=== PATIENT | female | born 1960 | race Caucasian/White ===

== ENCOUNTER 2018-09-26 13:38 | Inpatient (IN) | payer OTHER ==
[~2018-09-26] VITALS: Ht 170.2 cm; Wt 76.0 kg
[2018-09-26 15:07] LABS: BASOPHIL % 0.6 % (0-2)
[2018-09-26 15:10] LABS: CALCIUM 9.1 mg/dL (8.5-10.1); CARBON DIOXIDE 25.6 mmol/L (21-32); CHLORIDE SERUM 102 mmol/L (98-107); CREATININE SERUM 0.6 mg/dL (0.6-1.0); GFR1 > 60 mL/min; GLUCOSE SERUM 85 mg/dL (74-106); PLATELET COUNT 406 x10^3mcL (130-400); POTASSIUM SERUM 3.5 mmol/L (3.5-5.1); RED CELL DISTRIBUTION WIDTH 17.4 % (11.5-14.5); SODIUM SERUM 138 mmol/L (136-145)
[2018-09-26 15:15] LABS: ALKALINE PHOSPHATASE 100 U/L (46-116); ALT/SGPT 27 U/L (14-59); AST/SGOT 27 U/L (15-37); BILIRUBIN TOTAL 0.28 mg/dL (0.20-1.00); TOTAL PROTEIN, SERUM 7.8 g/dL (6.4-8.2)
[2018-09-26 15:18] LABS: ALBUMIN 2.9 g/dL (3.4-5.0)
[2018-09-26 16:05] VITALS: BP 115/73
[2018-09-26] MEDS ORDERED: ATIVAN1 MG PO (16:56)
[2018-09-26] MEDS ORDERED: PHOS PO (16:58)
[2018-09-26] MEDS ORDERED: FERROUS SULFAT325 M2 PO (16:58)
[2018-09-26] MEDS ORDERED: KEPPRA1000 M1 PO (16:58)
[2018-09-26] MEDS ORDERED: NAPROXEN500 MG PO (16:59)
[2018-09-26] MEDS ORDERED: MORPHINE SULFAT15 M7 PO (16:59)
[2018-09-26] MEDS ORDERED: REM15 PO (17:00)
[2018-09-26] MEDS ORDERED: NYSTATIN1 EAC1 TOP (17:00)
[2018-09-26] MEDS ORDERED: [UNRECOGNIZED DRUG - CODE] TOP (17:01)
[2018-09-26] MEDS ORDERED: GOOD SENSE PAI650 MG PO (17:04)
[2018-09-26] MEDS ORDERED: Z PO (17:05)
[2018-09-26] MEDS ORDERED: ZOFRAN8 MG PO (17:05)
[2018-09-26] MEDS ORDERED: VITAMIN D32000 I2 PO (17:05)
[2018-09-26 18:14] VITALS: BP 115/75
[2018-09-26 23:13] VITALS: BP 120/70
[2018-09-27 06:01] VITALS: BP 103/62
[2018-09-27 08:59] VITALS: BP 102/60
[2018-09-27 11:49] VITALS: BP 123/71
[2018-09-27 17:20] VITALS: BP 115/76
[2018-09-27 21:19] VITALS: BP 114/62
[2018-09-28 05:30] VITALS: BP 108/69
[2018-09-28 09:36] VITALS: BP 102/58
[2018-09-28 13:01] VITALS: BP 110/75
[2018-09-28 17:13] VITALS: BP 101/589
[2018-09-28 21:09] VITALS: BP 95/50
[2018-09-29 05:34] VITALS: BP 101/53
[2018-09-29 09:56] VITALS: BP 107/59
[2018-09-29 17:34] VITALS: BP 102/54
[2018-09-29 21:11] VITALS: BP 98/64
[2018-09-30 05:28] VITALS: BP 92/58
[2018-09-30 09:19] VITALS: BP 108/62
[2018-09-30 13:49] VITALS: BP 94/50
[2018-09-30 14:34] VITALS: BP 94/50
== END 2018-09-30 16:19 | disposition other institution (70) | DRG 100 ==
LOC: ED 13:38 → DU 15:33
PROVIDERS: Emergency Medicine
DX: G40.909 Epilepsy, unspecified, not intractable, without status epilepticus (principal); G93.41 Metabolic encephalopathy; C79.31 Secondary malignant neoplasm of brain; C79.51 Secondary malignant neoplasm of bone; E46 Unspecified protein-calorie malnutrition; C50.912 Malignant neoplasm of unspecified site of left female breast; Z51.5 Encounter for palliative care
CPT/HCPCS: J1953; J2060; J2270; J2543; J3490; J7620; Q0092